=== PATIENT | female | born 1975 | race Caucasian/White ===

== ENCOUNTER 2017-06-17 08:17 | Emergency (ER) | payer OTHER, BC ==
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
--- NOTE | 2017-06-17 09:13 | CR ---
EXAMINATION: Portable chest radiograph. HISTORY: Pain. FINDINGS: The trachea is midline. The cardiomediastinal silhouette is within normal limits. No pulmonary infilt rates, effusions or pneumothorax. Osseous structures appear unremarkable. IMPRESSION: No acute cardiopulmonary process.
--- NOTE | 2017-06-17 09:14 | CR ---
EXAMINATION: Pelvis HISTORY: Pain COMPARISON: None TECHNIQUE: AP view FINDINGS: There is no acute osseous abnormality, dislocation, or fracture. Bone mineralization appear s normal. SI joints are symmetric. Hip joint spaces are otherwise preserved. Mild prominence of the a cetabular rims bilaterally. IMPRESSION: No acute osseous abnormality identified.
--- NOTE | 2017-06-17 09:16 | CT ---
EXAMINATION: Non contrast CT head. Coronal and sagittal reformats. HISTORY: Pain FINDINGS: No evidence of intra or extra axial hemorrhage, mass, midline shift, hydrocephalus or edema. No hypoattenuation changes in the major vascular territories to suggest acute infarct. No abnormal intracranial calcifications are detected. No evidence of substantial vascular calcificat ions. Paranasal sinuses and mastoid air cells are well aerated without substantial findings. Orbits and gl obes are symmetric. Pituitary fossa appears unremarkable. Calvarium is intact. No evidence of skull fracture. Small subcutaneous hematoma within the left supra orbital region. IMPRESSION: No acute intracranial findings.
--- NOTE | 2017-06-17 09:18 | CT ---
EXAMINATION: CT cervical spine HISTORY: Pain COMPARISON: None TECHNIQUE: Axial CT images obtained through the cervical spine without contrast. Coronal and sagittal reconstructions obtained. FINDINGS: The cervical spinal alignment is normal. The vertebral body heights and disc spaces appear well-maintained. There is no fracture or acute osseous abnormality. Bone mineralization is normal. Pa ravertebral soft tissues are normal. Lung apices are clear. IMPRESSION: No acute cervical abnormalities identified.
[2017-06-17 09:24] LABS: CHLORIDE,CL 106 mmol/L (98-110); SODIUM,NA 140 mmol/L (136-146)
== END 2017-06-17 10:26 | disposition home or self-care (01) ==
LOC: MW.ED 08:17
DX: S06.0X0A Concussion without loss of consciousness, initial encounter (principal); S00.83XA Contusion of other part of head, initial encounter; Z79.899 Other long term (current) drug therapy; V49.49XA Driver injured in collision with other motor vehicles in traffic accident, initial encounter
CPT/HCPCS: 36415; 70450; 71045; 72125; 72170; 80053; 81001; 81025; 85025; 93005; 99285; G0390; 99284